=== PATIENT | female | born 1980 | race Caucasian/White ===

== ENCOUNTER 2017-06-21 21:05 | Emergency (ER) | payer OTHER ==
[~2017-06-21 21:05] MED LIST: ALB18R INH; AMO500 PO; AZIT-1 PO; BENZ100C4 PO; GUAI-242 PO; GUAI480S48 PO; GUAI600T57 PO; KET10 PO; NO MEDS; PER PO
--- NOTE | 2017-06-21 21:19 | ER Report ---
History and Physical Time Seen By MD: 21:17 Hx. of Stated Complaint: patient states she is having lower back pain, she took 3 lortabs and 11ibprophen in the span of 12hours, trying to alieveae pain. patient now feeling really nauseated, having dizzy spells, feeling really tired and can barely keep her eyes open. HPI/ROS CHIEF COMPLAINT: Dizzy, nausea HISTORY OF PRESENT ILLNESS: 37-year-old female presents ambulatory to the ER complaining of epigastric pain, nausea and dizziness. Patient's been overworking herself double shifts daily for the last week. He is had very little sleep. She's been sick. She started her menstrual period and she injured her back at work yesterday. She had some leftover Vicodin from a dental procedure that she took to get some relief. She also has been taking significant amounts of NSAIDs for additional pain relief. She's been feeling dizzy and near syncopal. She denies fever or chills. She denies rhinitis or sore throat. She denies shortness of breath or productive cough. She denies chest pain. Patient notes severe lower abdominal cramps consistent with her heavy menses. REVIEW OF SYSTEMS: Respiratory: No cough, no dyspnea. Cardiovascular: No chest pain, no palpitations. Gastrointestinal: As above Musculoskeletal: No back pain. Allergies: Coded Allergies: No Known Drug Allergies (Verified , 06/21/17) Home Meds Active Scripts Ondansetron Hcl (ZOFRAN) 4 Mg Tablet, 4 MG PO Q6H Y for NAUSEA/VOMITING, #10 Prov:PEPE WOODALL DO 06/21/17 Discontinued Reported Medications Guaifenesin (MUCINEX) 600 Mg Tablet.er, 600 MG PO 01/10/17 Benzonatate 100 Mg Cap (TESSALON PERLE 100 MG CAP) 100 Mg Capsule, 200 MG PO TID , #15 CAP 01/10/17 Azithromycin (ZITHROMAX) 250 Mg Tablet, 1 TAB PO QDAY, TAB 01/10/17 Discontinued Scripts Albuterol Sulfate (VENTOLIN HFA) 18 Gm Inh, 1-2 PUFF INH Q4-6H Y for SHORTNESS OF BREATH, #1 INH Prov:DARIO VAUGHN PA-C 01/10/17 Guaifenesin/Codeine Phosphate (CHERATUSSIN AC SYRUP) 118 Ml Liquid, 118 ML PO QID Y for prn, #1 BOTTLE Prov:DARIO VAUGHN MEAGAN 01/10/17 Past Medical/Surgical History Asthma Reviewed Nurses Notes: Yes Old Medical Records Reviewed: Yes Hx Substance Use Disorder: No Hx Alcohol Use: Yes (OCC) Constitutional Vital Sign - Last 24 Hours 06/21/17 06/21/17 06/21/17 06/21/17 21:09 21:20 21:30 21:35 Temp 98.8 Pulse 80 78 69 Resp 12 7 9 B/P (MAP) 128/81 120/71 (87) Pulse Ox 94 93 94 O2 Delivery Room Air 06/21/17 06/21/17 06/21/17 06/21/17 21:50 22:05 22:20 22:35 Pulse 69 72 72 69 Resp 11 18 19 34 Pulse Ox 91 92 93 95 06/21/17 06/21/17 06/21/17 22:42 22:50 23:00 Pulse 58 Resp 13 B/P (MAP) 115/61 (79) 119/65 (83) Pulse Ox 96 Physical Exam General Appearance: The patient is alert, has no immediate need for airway protection and no current signs of toxicity. Vital signs stable, afebrile, pulse ox normal HEENT: Pupils equal and round no injection. TMs normal, oropharynx without redness or exudate, mucous. Membranes are moist Respiratory: Chest is non tender, lungs are clear to auscultation. No wheezing or rails Cardiac: regular rate and rhythm Gastrointestinal: Abdomen is soft, mild suprapubic tenderness, no masses, bowel sounds normal. Musculoskeletal: Neck: Neck is supple and non tender. No lymphadenopathy Extremities have full range of motion and are non tender. Skin: No rashes or lesions. DIFFERENTIAL DIAGNOSIS: After history and physical exam differential diagnosis was considered for abdominal pain including but not limited to appendicitis, cholecystitis, gastritis , dysmenorrhea, near syncope, lumbar strain, urinary tract infection, and urinary tract infection. Medical Decision Making Data Points Result Diagram: 06/21/17214506/21/172145 Laboratory Hematology Test 06/21/17 21:09 06/21/17 21:46 Urine Color Yellow Urine Clarity Clear Urine pH 5.0 pH (4.8-9.5) Urine Specific [place] 1.025 Urine Protein Negative mg/dL (NEGATIVE) Urine Glucose (UA) Negative mg/dL (NEGATIVE) Urine Ketones Negative mg/dL (NEGATIVE) Urine Blood Large (NEGATIVE) Urine Nitrite Negative (NEGATIVE) Urine Bilirubin Negative (NEGATIVE) Urine Urobilinogen Negative mg/dL (0.2-1.9) Urine Leukocyte Esterase Negative (NEGATIVE) Urine RBC 3 /HPF (0-2/HPF) Urine WBC 2 /HPF (0-5/HPF) Urine Squamous Epithelial Cells Many /LPF (</=FEW) Urine Bacteria Negative /HPF (NONE-FEW) Urine Mucus Few /HPF (NONE-FEW) Red Blood Count 4.65 M/uL (4.17-5.56) Mean Corpuscular Volume 71.1 fL (80.0-96.0) Mean Corpuscular Hemoglobin 22.9 pg (26.0-33.0) Mean Corpuscular Hemoglobin Concent 32.2 g/dL (32.0-36.0) Red Cell Distribution Width 16.9 % (11.5-14.5) Mean Platelet Volume 7.7 fL (7.2-11.1) Neutrophils (%) (Auto) 76.0 % (39.4-72.5) Lymphocytes (%) (Auto) 17.7 % (17.6-49.6) Monocytes (%) (Auto) 5.2 % (4.1-12.4) Eosinophils (%) (Auto) 0.5 % (0.4-6.7) Basophils (%) (Auto) 0.6 % (0.3-1.4) Nucleated RBC Relative Count (auto) 0.0 /100WBC Neutrophils # (Auto) 8.3 K/uL (2.0-7.4) Lymphocytes # (Auto) 1.9 K/uL (1.3-3.6) Monocytes # (Auto) 0.6 K/uL (0.3-1.0) Eosinophils # (Auto) 0.1 K/uL (0.0-0.5) Basophils # (Auto) 0.1 K/uL (0.0-0.1) Nucleated RBC Absolute Count (auto) 0.01 K/uL Sodium Level 141 mmol/L (137-145) Potassium Level 3.6 mmol/L (3.5-5.0) Chloride Level 106 mmol/L (98-107) Carbon Dioxide Level 24 mmol/L (22-31) Blood Urea Nitrogen 12 mg/dl (7-18) Creatinine 0.80 mg/dl (0.52-1.04) Glomerular Filtration Rate Calc > 60.0 Random Glucose 104 mg/dl (75-110) Calcium Level 8.5 mg/dl (8.4-10.2) Total Bilirubin 0.3 mg/dl (0.2-1.3) Aspartate Amino Transf (AST/SGOT) 19 U/L (0-35) Alanine Aminotransferase (ALT/SGPT) 21 U/L (0-56) Alkaline Phosphatase 74 U/L (0-126) Troponin I < 0.012 ng/ml Total Protein 6.1 gm/dl (6.3-8.2) Albumin 3.3 g/dl (3.5-5.0) Amylase Level 76 U/L (0-110) Lipase 37 U/L (23-300) Human Chorionic Gonadotropin, Qual Negative (NEGATIVE) Chemistry Test 06/21/17 21:09 06/21/17 21:46 Urine Color Yellow Urine Clarity Clear Urine pH 5.0 pH (4.8-9.5) Urine Specific [place] 1.025 Urine Protein Negative mg/dL (NEGATIVE) Urine Glucose (UA) Negative mg/dL (NEGATIVE) Urine Ketones Negative mg/dL (NEGATIVE) Urine Blood Large (NEGATIVE) Urine Nitrite Negative (NEGATIVE) Urine Bilirubin Negative (NEGATIVE) Urine Urobilinogen Negative mg/dL (0.2-1.9) Urine Leukocyte Esterase Negative (NEGATIVE) Urine RBC 3 /HPF (0-2/HPF) Urine WBC 2 /HPF (0-5/HPF) Urine Squamous Epithelial Cells Many /LPF (</=FEW) Urine Bacteria Negative /HPF (NONE-FEW) Urine Mucus Few /HPF (NONE-FEW) White Blood Count 10.9 k/uL (4.5-11.0) Red Blood Count 4.65 M/uL (4.17-5.56) Hemoglobin 10.6 g/dL (12.0-16.0) Hematocrit 33.1 % (34.0-47.0) Mean Corpuscular Volume 71.1 fL (80.0-96.0) Mean Corpuscular Hemoglobin 22.9 pg (26.0-33.0) Mean Corpuscular Hemoglobin Concent 32.2 g/dL (32.0-36.0) Red Cell Distribution Width 16.9 % (11.5-14.5) Platelet Count 371 K/uL (150-450) Mean Platelet Volume 7.7 fL (7.2-11.1) Neutrophils (%) (Auto) 76.0 % (39.4-72.5) Lymphocytes (%) (Auto) 17.7 % (17.6-49.6) Monocytes (%) (Auto) 5.2 % (4.1-12.4) Eosinophils (%) (Auto) 0.5 % (0.4-6.7) Basophils (%) (Auto) 0.6 % (0.3-1.4) Nucleated RBC Relative Count (auto) 0.0 /100WBC Neutrophils # (Auto) 8.3 K/uL (2.0-7.4) Lymphocytes # (Auto) 1.9 K/uL (1.3-3.6) Monocytes # (Auto) 0.6 K/uL (0.3-1.0) Eosinophils # (Auto) 0.1 K/uL (0.0-0.5) Basophils # (Auto) 0.1 K/uL (0.0-0.1) Nucleated RBC Absolute Count (auto) 0.01 K/uL Glomerular Filtration Rate Calc > 60.0 Calcium Level 8.5 mg/dl (8.4-10.2) Total Bilirubin 0.3 mg/dl (0.2-1.3) Aspartate Amino Transf (AST/SGOT) 19 U/L (0-35) Alanine Aminotransferase (ALT/SGPT) 21 U/L (0-56) Alkaline Phosphatase 74 U/L (0-126) Troponin I < 0.012 ng/ml Total Protein 6.1 gm/dl (6.3-8.2) Albumin 3.3 g/dl (3.5-5.0) Amylase Level 76 U/L (0-110) Lipase 37 U/L (23-300) Human Chorionic Gonadotropin, Qual Negative (NEGATIVE) Urinalysis Test 06/21/17 21:09 Urine Color Yellow Urine Clarity Clear Urine pH 5.0 pH (4.8-9.5) Urine Specific [place] 1.025 Urine Protein Negative mg/dL (NEGATIVE) Urine Glucose (UA) Negative mg/dL (NEGATIVE) Urine Ketones Negative mg/dL (NEGATIVE) Urine Blood Large (NEGATIVE) Urine Nitrite Negative (NEGATIVE) Urine Bilirubin Negative (NEGATIVE) Urine Urobilinogen Negative mg/dL (0.2-1.9) Urine Leukocyte Esterase Negative (NEGATIVE) Urine RBC 3 /HPF (0-2/HPF) Urine WBC 2 /HPF (0-5/HPF) Urine Squamous Epithelial Cells Many /LPF (</=FEW) Urine Bacteria Negative /HPF (NONE-FEW) Urine Mucus Few /HPF (NONE-FEW) EKG/Imaging EKG Interpretation 12 lead EKG: Rhythm: Sinus bradycardia, rate 58 bpm with sinus arrhythmia [place]: normal QRS: Incomplete represent branch block pattern ST segments: Diffuse nonspecific ST and T wave abnormality ED Course/Re-evaluation Clinical Indication for ER IV: Hydration, IV Access ED Course Patient was admitted to an examination room. H&P was done. The dental diagnoses was considered. On clinical examination. Patient has stable vital signs. She is treated with IV fluid hydration and Zofran. Diagnostic laboratory studies show mild iron deficiency anemia. Her last CBC from January showed microcytic indices but no anemia. She does have heavy menstrual periods. She will likely need iron replacement further workup by primary care. Patient's urinalysis is contaminated with blood from her menses, but no evidence of infection. Patient's nausea is well controlled with Zofran. Patient had an EKG which showed sinus bradycardia with without ischemic changes. Patient's discharged home, advised to rest. She is advised to cut back. Her quantitative work. She is advised to increase her fluid intake. She given a prescription for Zofran for nausea control. She is advised to follow-up with Dr. Najera. For evaluation, treatment of her iron deficiency anemia. At discharge. Patient sat up and developed sharp left upper chest pain. Worse with deep inspiration with a dry cough. Patient was offered a chest x-ray. A troponin was artery performed and was unremarkable. I also considered the addition of a d-dimer. Patient was reluctant to have any further care provided. She is advised ibuprofen 600 mg 3 times daily for pain relief. Decision to Disposition Date: Jun 21, 2017 Decision to Disposition Time: 22:03 Depart Departure Latest Vital Signs Vital Signs Date Time Temp Pulse Resp B/P (MAP) Pulse Ox O2 Delivery O2 Flow Rate FiO2 06/21/17 23:00 119/65 (83) 06/21/17 22:50 58 13 96 06/21/17 21:09 98.8 Room Air Impression: Primary Impression: Near syncope Additional Impressions: Dysmenorrhea Back pain Iron deficiency anemia Condition: Improved Disposition: HOME OR SELF-CARE Referrals: DAI NAJERA MD New Scripts Ondansetron Hcl (ZOFRAN) 4 Mg Tablet 4 MG PO Q6H Y for NAUSEA/VOMITING, #10 Prov: PEPE WOODALL DO 06/21/17 Patient Instructions: Anemia (ED), Near Syncope (ED) Additional Instructions: Follow-up with your primary care doctor or Dr Najera Problem Qualifiers Additional Impressions: Back pain Back pain location: low back pain Chronicity: acute Back pain laterality: unspecified Sciatica presence: unspecified whether sciatica present Qualified Codes: M54.5 - Low back pain Iron deficiency anemia Iron deficiency anemia type: unspecified iron deficiency Qualified Codes: D50.9 - Iron deficiency anemia, unspecified PEPE WOODALL DO Jun 21, 2017 21:19
[2017-06-21] MEDS ORDERED: ONDANSETRON 4 MG/2 ML VIAL IVP ONE (21:20)
[2017-06-21] MEDS ORDERED: NS(*) 0.9% 1000 ML BAG 1,000 ML IV ONE ×2 (21:20→22:30)
[2017-06-21 21:55] LABS: PLATELET COUNT, AUTOMATED 371 K/uL (150-450)
--- NOTE | 2017-06-21 21:56 | EKG ---
FACILITY: [facility] - [place] PATIENT NAME: MAGGI SINGLETARY : [id number] MR: [id number] V: [id number] EXAM DATE: ORDERING PHYSICIAN: PEPE WOODALL TECHNOLOGIST: RITCHIE Test Reason : DIZZINESS Blood Pressure : / mmHG Vent. Rate : 058 BPM Atrial Rate : 058 BPM P-R Int : 160 ms QRS Dur : 102 ms QT Int : 438 ms P-R-T Axes : 049 011 012 degrees QTc Int : 429 ms Sinus bradycardia with sinus arrhythmia Nonspecific interventricular conduction delay Nonspecific T wave abnormality Abnormal ECG No previous ECGs available Confirmed by NAVJOT SAMANO ([id number] on 06/22/2017 5:38:01 AM Referred By: Confirmed By:NAVJOT SAMANO
[2017-06-21] MEDS ORDERED: ONDA4TAB97 PO (22:29)
[2017-06-21] MEDS ORDERED: ONDANSETRON 4 MG ODT TH SL ONE (22:30)
[2017-06-21 23:00] VITALS: BP 119/65
== END 2017-06-21 23:05 | disposition home or self-care (01) ==
LOC: ER 21:17
DX: D50.9 Iron deficiency anemia, unspecified (principal); M54.5 Low back pain; R55 Syncope and collapse; N94.6 Dysmenorrhea, unspecified
CPT/HCPCS: 81001; 82150; 83690; 84484; 84703; 85025; 93005; 96361; 96374; 99284; J2405; J7030; S0119; 82040; 82247; 82310; 82374; 82435; 82565; 82947; 84075; 84132; 84155; 84295; 84450; 84460; 84520

== ENCOUNTER 2018-06-08 01:15 | Emergency (ER) | payer OTHER ==
[~2018-06-08 01:15] MED LIST changes: +ONDA4TAB97 PO
--- NOTE | 2018-06-08 01:18 | ER Report ---
History and Physical Time Seen By MD: 01:18 HPI/ROS CHIEF COMPLAINT: Left calf pain HISTORY OF PRESENT ILLNESS: 38-year-old female presents ambulatory to the ER complaining of left calf pain. She recalls no injury. She notes pain and deformity in the posterior calf in the midportion. She feels some ropey deformity. Patient notes no ankle swelling or knee pain. She has no history of arthritis or DVT. Patient notes 410 dull pain aggravated by palpation and plantarflexion REVIEW OF SYSTEMS: Respiratory: No cough, no dyspnea. Cardiovascular: No chest pain, no palpitations. Gastrointestinal: No vomiting, no abdominal pain. Musculoskeletal: As above Allergies: Coded Allergies: No Known Drug Allergies (Verified , 06/08/18) Home Meds Active Scripts Ondansetron Hcl (ZOFRAN) 4 Mg Tablet, 4 MG PO Q6H PRN for NAUSEA/VOMITING, #10 Prov:PEPE WOODALL DO 06/21/17 Reported Medications Ranitidine Hcl (ZANTAC) 150 Mg Tablet, 150 MG PO QDAY, TAB 06/08/18 Reviewed Nurses Notes: Yes Old Medical Records Reviewed: Yes Hx Substance Use Disorder: No Hx Alcohol Use: Yes (OCC) Constitutional Vital Sign - Last 24 Hours 06/08/18 06/08/18 06/08/18 06/08/18 01:15 01:18 01:20 01:30 Temp 99.2 Pulse ??? 81 78 Resp 16 B/P (MAP) 122/73 (89) 122/73 Pulse Ox 96 92 O2 Delivery Room Air 06/08/18 06/08/18 01:45 02:00 Pulse 76 70 Pulse Ox 93 91 Physical Exam General Appearance: The patient is alert, has no immediate need for airway protection and no current signs of toxicity. Vital signs stable, afebrile, pulse ox normal Eyes: Pupils equal and round no injection. Respiratory: Chest is non tender, lungs are clear to auscultation. Cardiac: regular rate and rhythm Gastrointestinal: Abdomen is soft and non tender, no masses, bowel sounds normal. Musculoskeletal: Neck: Neck is supple and non tender. Extremities have full range of motion and are non tender. Left calf with some tenderness in the mid portion directly in the posterior midline, ankle and foot are unremarkable. All digits are neurovascularly intact. There is positive Homans sign. There is pain on compression of the calf muscle. Skin: No rashes or lesions. [ ] DIFFERENTIAL DIAGNOSIS: After history and physical exam differential diagnosis was considered for DVT, calf muscle strain, superficial phlebitis, occult contusion Medical Decision Making EKG/Imaging Imaging Results: Ultrasound of the left lower extremity venogram was obtained. The results of the study are no evidence of DVT. The study was read by the radiologist. I viewed the images myself on the PACS system. ED Course/Re-evaluation ED Course Patient was admitted to an examination room. H&P was done. The differential diagnoses was considered. On clinical examination. Patient has calf pain. She has no distal ankle swelling to suggest edema. She does have a positive Homans sign. She's not in the form of hormone replacement or control. An ultrasound is performed which is negative for evidence of DVT. Patient's discharged home with a conservative treatment plan to wear compressive wrap such as an Dominik wrap and take ibuprofen 600 mg 3 times daily. She is advised to apply heating pad to the affected area. All up with primary care if unimproved in 3-5 days. Decision to Disposition Date: Jun 08, 2018 Decision to Disposition Time: 02:17 Depart Departure Latest Vital Signs Vital Signs Date Time Temp Pulse Resp B/P (MAP) Pulse Ox O2 Delivery O2 Flow Rate FiO2 06/08/18 02:00 70 91 06/08/18 01:20 99.2 16 122/73 Room Air Impression: Primary Impression: Pain of left calf Additional Impression: Strain of calf muscle Condition: Improved Disposition: HOME OR SELF-CARE Patient Instructions: Muscle Strain (ED) Additional Instructions: Take ibuprofen 200 mg 3 tablets 3 times a day with food Apply ice packs to your calf area for 2 days then heating pad for several more days Follow-up with primary care if unimproved in 3-5 days. Problem Qualifiers Additional Impression: Strain of calf muscle Encounter type: initial encounter Laterality: left Qualified Codes: S86.812A - Strain of other muscle(s) and tendon(s) at lower leg level, left leg, initial encounter PEPE WOODALL DO Jun 08, 2018 01:18
[2018-06-08 01:20] VITALS: BP 122/73
[2018-06-08] MEDS ORDERED: RANI-366 PO (01:23)
--- NOTE | 2018-06-08 02:40 | RADIOLOGY IMAGING REPORT ---
FACILITY: [facility] - [place] PATIENT NAME: Carolyn Riley : 1980 MR: [id number] V: [id number] EXAM DATE: [id number] ORDERING PHYSICIAN: PEPE WOODALL TECHNOLOGIST: Location: [facility] - [place] Patient: Carolyn Riley : 1980 Visit/Account:[id number] Date of Sevice: 06/08/2018 EXAMINATION: LEFT LOWER EXTREMITY DOPPLER VENOUS ULTRASOUND DATE: 06/08/2018 1:24 AM INDICATION: Left calf pain. TECHNIQUE: Grayscale, color and pulsed Doppler ultrasound was performed of the left lower extremity v ei to evaluate for deep venous thrombosis. COMPARISON: None. FINDINGS: The left common femoral, superficial femoral, and popliteal veins are compressible with normal flow o n color Doppler and preserved venous waveform variation. There is also normal color Doppler flow in t he profunda femoris and greater saphenous veins. The left posterior tibial and peroneal veins have patent color Doppler flow. IMPRESSION: No evidence of deep venous thrombosis in the left lower extremity. Report Dictated By: Jose Rosales MD at 06/08/2018 2:35 AM Report E-Signed By: Jose Rosales MD at 06/08/2018 2:37 AM WSN:[id number]
== END 2018-06-08 02:34 | disposition home or self-care (01) ==
LOC: ER 01:47
DX: S86.812A Strain of other muscle(s) and tendon(s) at lower leg level, left leg, initial encounter (principal)
CPT/HCPCS: 99284